=== PATIENT | male | born 1980 | race African-American/Black ===

== ENCOUNTER 2017-08-27 19:49 | Emergency (ER) | payer BC ==
[~2017-08-27] VITALS: Ht 177.8 cm; Wt 61.9 kg
[2017-08-27] MEDS ORDERED: NARCAN4 MG NS (20:48)
[2017-08-27 21:02] VITALS: BP 119/74
== END 2017-08-27 21:02 | disposition home or self-care (01) ==
LOC: EME → EDBD 19:49 → EME 19:49
DX: T40.601A Poisoning by unspecified narcotics, accidental (unintentional), initial encounter (principal); F19.10 Other psychoactive substance abuse, uncomplicated; F17.200 Nicotine dependence, unspecified, uncomplicated
CPT/HCPCS: 80053; 85027; 99281; 99284; G0480; J2310